=== PATIENT | female | born 1990 | race Caucasian/White ===

== ENCOUNTER 2017-07-20 17:27 | Emergency (ER) | payer OTHER ==
[~2017-07-20] VITALS: Ht 162.6 cm; Wt 61.4 kg
[~2017-07-20 17:27] MED LIST: NOCURR
[2017-07-20 18:33] LABS: APPEARANCE,URINE CLOUDY (CLEAR); BILIRUBIN,URINE NEGATIVE (NEGATIVE); GLUCOSE, URINE (UA) NEGATIVE (NEGATIVE); KETONES,URINE NEGATIVE (NEGATIVE); LEUKOCYTE ESTERASE ,URINE MODERATE (NEGATIVE); NITRATE,URINE NEGATIVE (NEGATIVE); OCCULT BLOOD,URINE SMALL (NEGATIVE); PH,URINE 6.5 (5.0-8.0); PROTEIN,URINE NEGATIVE (NEGATIVE); UROBILINOGEN,URINE 0.2 mg/dL (<=1.0)
[2017-07-20 18:51] LABS: BACTERIA,URINE Few /HPF (None Seen); SQUAMOUS EPITHELIAL CELL,UR Moderate /LPF (None Seen); WBC,URINE >100 /HPF (0-5)
[2017-07-20 18:59] VITALS: BP 120/89
[2017-07-20] MEDS ORDERED: ACETAMINOPHEN/CODEINE 300-30 MG TABLET PO ONE (19:15)
[2017-07-20] MEDS ORDERED: SULFAMETHOX/TRIMETH DS 800-160 MG/TABLET PO ONE (19:15)
== END 2017-07-20 19:26 | disposition home or self-care (01) ==
LOC: EMS 17:30
DX: N39.0 Urinary tract infection, site not specified (principal); H92.01 Otalgia, right ear
CPT/HCPCS: 87086; 99284

== ENCOUNTER 2017-10-03 18:02 | Emergency (ER) | payer OTHER ==
[~2017-10-03] VITALS: Ht 162.6 cm; Wt 63.6 kg
[2017-10-03] MEDS ORDERED: ACETAMINOPHEN/CODEINE 300-30 MG TABLET PO ONE (21:30)
[2017-10-03] MEDS ORDERED: IBUPROFEN 600 MG TABLET PO ONE (21:30)
[2017-10-03] MEDS ORDERED: HYDROCODONE/ACETAMINOPHEN 5-325 MG TABLET PO ONE (23:45)
[2017-10-04 00:20] VITALS: BP 120/71
== END 2017-10-04 00:20 | disposition home or self-care (01) ==
LOC: EMS 18:03
DX: S06.0X9A Concussion with loss of consciousness of unspecified duration, initial encounter (principal); S00.03XA Contusion of scalp, initial encounter; W01.0XXA Fall on same level from slipping, tripping and stumbling without subsequent striking against object, initial encounter; Y93.89 Activity, other specified; Y92.090 Kitchen in other non-institutional residence as the place of occurrence of the external cause; Y99.8 Other external cause status
CPT/HCPCS: 70450; 81025; 99284

== ENCOUNTER 2018-01-22 18:27 | Emergency (ER) | payer SELFPAY ==
[~2018-01-22] VITALS: Ht 162.6 cm; Wt 63.6 kg
[2018-01-22] MEDS ORDERED: KETOROLAC TROMETHAMINE 30 MG/ML VIAL IM ONE (20:15)
[2018-01-22] MEDS ORDERED: DEXAMETHASONE SOD PHOS 4 MG/ML 5 ML VIAL IM ONE (20:15)
[2018-01-22 21:37] VITALS: BP 117/79
== END 2018-01-22 21:41 | disposition home or self-care (01) ==
LOC: EMS 18:27
DX: J40 Bronchitis, not specified as acute or chronic (principal); R20.2 Paresthesia of skin
CPT/HCPCS: 71045; 96372; 99284; J1100; J1885